=== PATIENT | male | born 1985 | race Caucasian/White ===

== ENCOUNTER → 2019-05-15 | Outpatient (CLI) | payer OTHER | LOC: COL.RAD 07:15 | DX: M51.26 Other intervertebral disc displacement, lumbar region (principal); M48.061 Spinal stenosis, lumbar region without neurogenic claudication ==

== ENCOUNTER → 2019-06-22 | Outpatient (CLI) | payer OTHER | LOC: MHCPAIN 13:52 | DX: M54.16 Radiculopathy, lumbar region (principal) | CPT/HCPCS: G0463 ==